=== PATIENT | male | born 1990 | race Caucasian/White ===

== ENCOUNTER 2023-04-26 14:58 | Emergency (ER) | payer OTHER, BC ==
[~2023-04-26] VITALS: Ht 180.3 cm; Wt 93.4 kg
[2023-04-26 15:00] VITALS: BP 131/72; PULSE 82; RESP 20; TEMP 97; O2SAT 97
--- NOTE | 2023-04-26 15:00 | NUR ---
PT WHEELCHAIR TO LOBBY BY [facility]
[2023-04-26] MEDS ORDERED: BACITRACIN OINT 500 UNITS/GM PKT TP ONE (15:50)
--- NOTE | 2023-04-26 16:20 | NUR ---
WOUND TO BILATERAL FOREARMS IRRIGATED. NON ADHERENT X 2 APPLIED TO R POSTERIOR FOREARM WOUND. + CMS. BLEEDING CONTROLLED.
[2023-04-26] MEDS ORDERED: NAPR-54 PO (16:57)
[2023-04-26] MEDS ORDERED: LID5T TP (16:59)
[2023-04-26 17:05] VITALS: BP 112/70; PULSE 74; RESP 17; O2SAT 98
--- NOTE | 2023-04-26 17:07 | NUR ---
Patient discharged with v/s stable. Written and verbal after care instructions given and explained. Patient alert, oriented and verbalized understanding of instructions. Ambulatory with steady gait. All questions addressed prior to discharge. ID band removed. Patient advised to follow up with PMD. Rx of lidoderm patch, naprosyn given. Patient educated on indication of medication including possible reaction and side effects. Opportunity to ask questions provided and answered.
== END 2023-04-26 17:16 | disposition home or self-care (01) ==
LOC: MED 14:58
DX: S20.211A Contusion of right front wall of thorax, initial encounter (principal); S50.811A Abrasion of right forearm, initial encounter; S40.812A Abrasion of left upper arm, initial encounter; V43.52XA Car driver injured in collision with other type car in traffic accident, initial encounter; Y93.89 Activity, other specified; Y92.410 Unspecified street and highway as the place of occurrence of the external cause; Y99.8 Other external cause status
CPT/HCPCS: 71046; 90471; 90715; 93005; 99283